=== PATIENT | female | born 1985 | race Caucasian/White ===

== ENCOUNTER 2025-01-04 21:46 | Inpatient (IN) | payer OTHER, SELFPAY ==
[2025-01-04 22:29] VITALS: BMI 29.7
[2025-01-04 23:09] LABS: ALT (SGPT) 17 U/L (0-35); AST (SGOT) 25 U/L (14-36); Albumin 4.2 g/dl (3.5-5.0); Alkaline Phosphatase 182 U/L (38-126); Blood Urea Nitrogen 11 mg/dl (7-17); Calcium 9.2 mg/dl (8.4-10.2); Carbon Dioxide 19 mmol/L (22-30); Chloride 100 mmol/L (98-107); Estimated Creatinine Clearance 103 ml/min; Glucose 82 mg/dl (70-99); Potassium 3.8 mmol/L (3.5-5.1); Sodium 129 mmol/L (135-145); Total Bilirubin 0.6 mg/dl (0.2-1.3); eGFR > 60.00
[2025-01-04 23:58] LABS: Urine Protein < 5 mg/dl
[2025-01-05 01:19] LABS: % Basophils 0.4 % (0-2); % Eosinophils 0.4 % (0-6); % Immature Granulocytes 0.8 % (0-0.5); % Lymphocytes 16.6 % (20.5-51.1); % Monocytes 6.1 % (1.7-9.3); % Neutrophils 75.7 % (42.2-75.2); Absolute Basophils 0.1 10^3/uL (0-0.2); Absolute Eosinophils 0.1 10^3/uL (0-0.7); Absolute Immature Granulocytes 0.1 10^3/uL (0-0.05); Absolute Monocytes 0.7 10^3/uL (0.1-0.6); Hematocrit 29.2 % (37.0-47.0); Hemoglobin 9.7 g/dL (12.0-16.0); Mean Corp Hgb Conc. 33.2 g/dL (33.0-37.0); Mean Corpuscular Volume 84.1 fL (81.0-99.0); Nucleated Red Blood Cells % 0 %; Platelet Count 206 10^3/uL (130-400); Red Blood Cell Count 3.47 10^6/uL (4.20-5.40); Red Cell Dist. Width 13.2 % (11.5-14.5); White Blood Cell Count 11.9 10^3/uL (4.8-10.8)
[2025-01-05] MEDS: PITOCIN 30 UNITS/NSS 500 ML IV (02:36)
[2025-01-05] MEDS: LR 1000 IV ×3 (02:36→10:21)
[2025-01-05] MEDS: PENICILLIN 110 UNITS IV (08:06)
--- NOTE | 2025-01-05 08:37 | CON.CAR ---
Addendum entered and electronically signed by Romaine Amin MD 01/05/25 14:05:
I saw and examined the patient.
The Concrete Truck Driver's note was reviewed and I agree with the note.
Comment: Briefly, 39-year-old woman with no significant cardiac history presenting for induction of labor at 39 weeks of and was found to be tachycardic for which cardiology was consulted
Twelve-lead ECG obtained which shows sinus tachycardia
With IV fluids and epidural it seems that heart rate has improved
Would treat underlying causes of tachycardia such as pain and hypovolemia
Max predicted heart rate for a 39-year-old is 180 bpm, would tolerate heart rates to this level during active labor
Discussed with the patient that we can consider echocardiogram on Tuesday or as an outpatient pending her hospital course
Rest per Selene Rivera
Original Note:
Consultation
Consultation Request
Date/Time Consultation Performed: 01/05/25
Requesting Provider: Dr. Askew
Performing Provider: Selene Rivera PA-C for Dr. Amin
Reason for Consultation: tachycardia
Medical History
-
Chief Complaint: tachycardia
History of Present Illness:
Patient is a 39-year-old female at 39 weeks and 2 days with baby girl who was seen by OB at [facility] yesterday and was reported to have low fluid levels by US. She was told she should have an induction. She was very emotional about this as she went
into labor naturally with her other 2 children, who were delivered here at . She states she discussed with her and decided to come to for second opinion/delivery. She was induced yesterday afternoon, states was started on pitocin ~2PM
yesterday. Around 3PM yesterday she states she noted intermittent heart racing and palpitations. Nursing noted HRs at times into 160s. Patient reports she hadn't eaten or had anything to drink for several hours yesterday. EKG overnight ST with HR
110s. She reports overnight symptoms have calmed down. Currently having contractions about every 3-5 minutes. Cardiology consulted for evaluation. No cardiac history and otherwise has been without issues. Denies BP problems.
PMH:
double hernia surgery as
Past Medical History
Past Medical History: Other (in HPI)
Social History
Tobacco: Non-Smoker
Alcohol: Occasional (prior to )
Personal:
Living: With Family
Employment: Employed
Family History
Family History: Early CAD (in father at age 45)
Allergies / Home Medications
Allergy/AdvReac Type Severity Reaction Status Date / Time
No Known Allergies Allergy Verified 01/04/25 22:28
�Medication �Instructions �Recorded �Confirmed �Type
vits no.124-ferrous fum 1 ea PO DAILY 05/06/16 01/04/25 History
27 mg iron-folic acid 800 mcg
tablet ( Vitamin)
Review of Systems
-
History Source: Patient
All other systems: Negative unless noted
Physical Exam
Lab Results
01/05/25 01:11
01/04/25 22:42
Physical Exam
General: No Apparent Distress and Comfortable
HEENT: Normocephalic, Anicteric and Moist Mucous Membranes
Respiratory: Clear and Non Labored Respirations
Cardiac: S1/S2 and Regular Rhythm
Musculoskeletal: No Clubbing, No Cyanosis and Edema (trace of B/L LE)
Skin: Warm and Dry
Neuro: AO x 3
Impression / Plan
-
Primary Filament Shaper: none
Assessment:
Sinus tachycardia
at 39 weeks and 2 days with baby girl, undergoing induction
double hernia surgery as infant
FH of early CAD
Plan:
-Patient had symptoms of palpitations and heart racing associated with induction of labor with pitocin yesterday. Now improved
-EKG sinus tachycardia
-symptoms presently resolved
-would continue to monitor. if with recurrent symptoms, could consider for echo on Tuesday
-d/w nursing and OB
Data Reviewed
-
EKG: Tracing Personally Visualized and interpreted
[2025-01-05] MEDS: FENTANYL/BUPIVACAINE 100 EPIDURAL (09:25)
[2025-01-05] MEDS: SUBLIMAZE 100 MCG EPIDURAL (09:25)
[2025-01-05] MEDS: PENICILLIN 55 UNITS IV (12:07)
[2025-01-05] MEDS: MOTRIN 600 MG PO (20:09)
[2025-01-06 05:46] LABS: Hematocrit 25.6 % (37.0-47.0); Hemoglobin 8.4 g/dL (12.0-16.0)
[2025-01-06] MEDS: TYLENOL 650 MG PO ×2 (09:12→19:19)
[2025-01-06] MEDS: PRENATAL PLUS 1 TABLET PO (09:13)
[2025-01-07] MEDS: PRENATAL PLUS 1 TABLET PO (07:50)
[2025-01-07] MEDS: FEOSOL 325 MG PO (07:50)
[2025-01-08 15:54] LABS: Syphilis/T. pallidum Ab Reflex Negative (Negative)
[2025-01-08 20:15] LABS: Hepatitis C Antibody Negative (Negative)
== END 2025-01-07 14:44 | disposition home or self-care (01) | DRG 805 ==
LOC: LDRP 21:46
PROVIDERS: Obstetrics & Gynecology; ADMITTING PHYSICIAN Obstetrics & Gynecology; CONSULT PHYSICIAN Internal Medicine Cardiovascular Disease
PROC: 10907ZC Drainage of Amniotic Fluid, Therapeutic from Products of Conception, Via Natural or Artificial Opening (ICD-10-PCS; 2025-01-05)
PROC: 10E0XZZ Delivery of Products of Conception, External Approach (ICD-10-PCS; 2025-01-05)
PROC: 3E033VJ Introduction of Other Hormone into Peripheral Vein, Percutaneous Approach (ICD-10-PCS; 2025-01-05)
PROC: 4A1HXCZ Monitoring of Products of Conception, Cardiac Rate, External Approach (ICD-10-PCS; 2025-01-05)
DX: O41.03X0 Oligohydramnios, third trimester, not applicable or unspecified (principal); O99.42 Diseases of the circulatory system complicating childbirth; Z37.0 Single live birth; R00.0 Tachycardia, unspecified; O99.824 Streptococcus B carrier state complicating childbirth; O90.81 Anemia of the puerperium; Z3A.39 39 weeks gestation of pregnancy; Z82.49 Family history of ischemic heart disease and other diseases of the circulatory system
CPT/HCPCS: 88307; 76815; 80053; 82570; 84156; 85014; 85018; 85025; 86780; 86803; 86850; 86900; 86901; 93005; 93306